=== PATIENT | female | born 1970 | race Caucasian/White ===

== ENCOUNTER → 2023-09-12 09:24 | Outpatient (REF) | payer BC, SELFPAY | LOC: HWRAD 09:24 | PROVIDERS: ATTENDING PHYSICIAN Nurse Practitioner Adult Health; REFERRING PHYSICIAN Internal Medicine Rheumatology | DX: M85.89 Other specified disorders of bone density and structure, multiple sites (principal); Z78.0 Asymptomatic menopausal state | CPT/HCPCS: 77080 ==